=== PATIENT | female | born 1985 | race Caucasian/White ===

== ENCOUNTER 2018-12-27 13:00 | Emergency (ER) | payer BC, MEDICAID ==
[~2018-12-27] VITALS: Ht 157.5 cm; Wt 86.2 kg
--- NOTE | 2018-12-27 13:16 | NUR ---
PT A/OX4, PRESENTS TO THE ER FOR MEDICAL CLEARANCE PRIOR TO SELF-ADMITTING INTO A [facility]. PT REPORTS SHE CONSUMED APPROXIMATELY "10 PILLS OF XANAX" 1 HOUR AGO BEFORE SHE "CHECKED HERSELF IN". PT DENIES SI. VSS. NO ACUTE DISTRESS NOTED AT THIS TIME. PT DENIES PAIN, C/P, SOB, N/V/D, DIZZINESS, HEADACHE. ER MD AT BEDSIDE FOR MSE.
--- NOTE | 2018-12-27 13:26 | NUR ---
HEALTH AND SOCIAL CARE TEACHER AT BEDSIDE.
[2018-12-27 13:33] LABS: *BILIRUBIN,URIN NEGATIVE (NEGATIVE); *BLOOD, URINE NEGATIVE (NEGATIVE); *CLARITY,URINE CLEAR (CLEAR); *COLOR,URINE YELLOW (YELLOW); *KETONES,URINE NEGATIVE (NEGATIVE); *UROBILINOGEN,URINE 0.2 E.U./dl (NORMAL); LEUKOCYTE ESTERASE ,URINE TRACE (NEGATIVE); NITRITE, URINE NEGATIVE (NEGATIVE); UGLUCOSE NEGATIVE (NEGATIVE)
[2018-12-27 13:35] LABS: *URINE HCG, QUAL NEGATIVE (NEGATIVE)
[2018-12-27 13:36] LABS: *AMPHETAMINE, URINE NEGATIVE (NEGATIVE); *BARBITURATE, URINE NEGATIVE (NEGATIVE); *CANNABINOID, URINE NEGATIVE (NEGATIVE); *COCCAINE, URINE NEGATIVE (NEGATIVE); *OPIATE, URINE NEGATIVE (NEGATIVE); *PHENCYCLIDINE SCREEN,URINE NEGATIVE (NEGATIVE)
[2018-12-27 13:43] LABS: MUCUS,URINE FEW /LPF (0-FEW); SQUAMOUS EPITHELIAL CELL,UR FEW /HPF (NONE SEEN)
[2018-12-27] MEDS ORDERED: ALPR1TAB7 PO (13:43)
[2018-12-27] MEDS ORDERED: HYDR-4354 PO (13:43)
[2018-12-27] MEDS ORDERED: CHLO100T17 PO ×2 (13:43)
[2018-12-27] MEDS ORDERED: DIVA500T2 PO (13:43)
[2018-12-27] MEDS ORDERED: DULO60CA45 PO (13:43)
[2018-12-27] MEDS ORDERED: QUET200T PO (13:43)
[2018-12-27 13:44] LABS: BASOPHILS # (AUTO) 0.1 K/uL (0.0-8.0); BASOPHILS % (AUTO) 1.4 % (0.0-2.0); EOSINOPHILS # (AUTO) 0.1 K/uL (0.0-0.7); EOSINOPHILS % (AUTO) 2.7 % (0.0-7.0); HEMATOCRIT 38.7 % (31.2-41.9); HEMOGLOBIN 13.6 g/dL (10.9-14.3); LYMPHOCYTES # (AUTO) 1.3 K/uL (20.0-40.0); LYMPHOCYTES % (AUTO) 29.7 % (20.5-51.5); MEAN CORPUSCULAR HEMOGLOBIN 28.9 uug (24.7-32.8); MEAN CORPUSCULAR HGB CONC 35 g/dL (32.3-35.6); MEAN CORPUSCULAR VOLUME 82.2 fL (75.5-95.3); MONOCYTES # (AUTO) 0.6 K/uL (2.0-10.0); MONOCYTES % (AUTO) 14.2 % (0.0-11.0); NEUTROPHILS # (AUTO) 2.3 K/uL (1.8-8.9); PLATELET COUNT (AUTO) 280 K/uL (179-408); RED BLOOD CELL COUNT(AUTO) 4.71 MIL/uL (3.63-4.92); WHITE BLOOD COUNT (AUTO) 4.4 K/uL (3.8-11.8)
[2018-12-27 13:44] LABS: BACTERIA,URINE NONE SEEN /HPF (NONE SEEN); RBC,URINE 0-3 /HPF (0-3)
[2018-12-27 13:49] LABS: ETHANOL < 3 MG/DL (0-0)
[2018-12-27 13:50] LABS: ACETAMINOPHEN < 2.0 ug/mL (10-30); ALANINE AMINOTRANSFERASE 29 U/L (14-59); ALKALINE PHOSPHATASE 78 U/L (50-136); ASPARTATE AMINOTRANSFERASE 22 U/L (15-37); BILIRUBIN,DIRECT 0.2 mg/dL (0.0-0.2); BILIRUBIN,TOTAL 0.6 mg/dL (0.2-1.0); CARBON DIOXIDE 25 mmol/L (21-32); CHLORIDE 102 mmol/L (98-107); CREATININE 0.8 mg/dL (0.6-1.3); GLUCOSE 93 mg/dL (74-106); POTASSIUM 3.8 mmol/L (3.5-5.1); TOTAL PROTEIN, SERUM 8.4 g/dL (6.4-8.2); UREA NITROGEN, BLOOD 17 mg/dL (7-18); VALPROIC ACID 12 ug/mL (50-100)
--- NOTE | 2018-12-27 14:05 | NUR ---
Patient discharged to home in stable conditon. Written and verbal after care instructions given. Patient verbalizes understanding of instructions. DR Herman made patient aware of test results.
[2018-12-27 14:06] VITALS: BP 118/84
== END 2018-12-27 14:16 | disposition home or self-care (01) ==
LOC: ER 13:00
DX: F13.20 Sedative, hypnotic or anxiolytic dependence, uncomplicated (principal); F32.9 Major depressive disorder, single episode, unspecified; F43.10 Post-traumatic stress disorder, unspecified; Z88.5 Allergy status to narcotic agent; Z88.8 Allergy status to other drugs, medicaments and biological substances; Z88.0 Allergy status to penicillin; Z79.899 Other long term (current) drug therapy; Z79.890 Hormone replacement therapy; Z90.710 Acquired absence of both cervix and uterus; X58.XXXA Exposure to other specified factors, initial encounter; Y93.89 Activity, other specified; Y92.89 Other specified places as the place of occurrence of the external cause; Y99.8 Other external cause status
CPT/HCPCS: 36415; 80048; 80076; 80164; 80307; 81001; 84703; 85025; 99283; G0480 ×2; G0481; A4663

== ENCOUNTER 2019-01-02 15:02 | Emergency (ER) | payer BC, MEDICAID ==
[~2019-01-02] VITALS: Ht 157.5 cm; Wt 86.2 kg
[~2019-01-02 15:02] MED LIST: ALPR1TAB7 PO; CHLO100T17 PO; DIVA500T2 PO; DULO60CA45 PO; HYDR-4354 PO; QUET200T PO
--- NOTE | 2019-01-02 15:34 | NUR ---
PT A/OX4, PRESENTS TO THE ER W/ STAFF MEMBER FROM THE [facility], FOR MEDICAL CLEARANCE. STAFF MEMBER REPORTS THE PT MAY HAVE OVER SELF-MEDICATED. PT DOES NOT APPEAR TO BE IN ANY APPARENT DISTRESS AT THIS TIME. VSS.
--- NOTE | 2019-01-02 16:00 | NUR ---
AWA POON AT BEDSIDE FOR MSE.
[2019-01-02 16:23] LABS: EOSINOPHILS # (AUTO) 0.6 K/uL (0.0-0.7); EOSINOPHILS % (AUTO) 13.3 % (0.0-7.0); HEMATOCRIT 30.8 % (31.2-41.9); HEMOGLOBIN 10.6 g/dL (10.9-14.3); LYMPHOCYTES # (AUTO) 1.7 K/uL (20.0-40.0); LYMPHOCYTES % (AUTO) 39.3 % (20.5-51.5); MEAN CORPUSCULAR HEMOGLOBIN 28.4 uug (24.7-32.8); MEAN CORPUSCULAR HGB CONC 35 g/dL (32.3-35.6); MEAN CORPUSCULAR VOLUME 82.1 fL (75.5-95.3); MONOCYTES # (AUTO) 0.3 K/uL (2.0-10.0); MONOCYTES % (AUTO) 7.6 % (0.0-11.0); NEUTROPHILS # (AUTO) 1.7 K/uL (1.8-8.9); NEUTROPHILS % (AUTO) 38.8 % (38.5-71.5); PLATELET COUNT (AUTO) 261 K/uL (179-408); RED BLOOD CELL COUNT(AUTO) 3.75 MIL/uL (3.63-4.92); WHITE BLOOD COUNT (AUTO) 4.3 K/uL (3.8-11.8)
[2019-01-02 16:24] LABS: *BILIRUBIN,URIN NEGATIVE (NEGATIVE); *BLOOD, URINE NEGATIVE (NEGATIVE); *COLOR,URINE YELLOW (YELLOW); *KETONES,URINE TRACE (NEGATIVE); LEUKOCYTE ESTERASE ,URINE 1+ (NEGATIVE); NITRITE, URINE NEGATIVE (NEGATIVE); PH,URINE 7.5 (5.0-8.0); UGLUCOSE NEGATIVE (NEGATIVE)
[2019-01-02 16:25] LABS: *CLARITY,URINE SLIGHTLY CLOUDY (CLEAR)
[2019-01-02 16:32] LABS: *AMPHETAMINE, URINE NEGATIVE (NEGATIVE); *BARBITURATE, URINE NEGATIVE (NEGATIVE); *CANNABINOID, URINE NEGATIVE (NEGATIVE); *COCCAINE, URINE NEGATIVE (NEGATIVE); *OPIATE, URINE NEGATIVE (NEGATIVE); *PHENCYCLIDINE SCREEN,URINE NEGATIVE (NEGATIVE); BACTERIA,URINE FEW /HPF (NONE SEEN); RBC,URINE 0-3 /HPF (0-3); SQUAMOUS EPITHELIAL CELL,UR FEW /HPF (NONE SEEN)
[2019-01-02 16:33] LABS: CARBON DIOXIDE 29 mmol/L (21-32); CHLORIDE 105 mmol/L (98-107); CREATININE 0.7 mg/dL (0.6-1.3); ETHANOL < 3 MG/DL (0-0); POTASSIUM 4.1 mmol/L (3.5-5.1); UREA NITROGEN, BLOOD 15 mg/dL (7-18)
[2019-01-02 16:39] LABS: ALANINE AMINOTRANSFERASE 18 U/L (14-59); ALKALINE PHOSPHATASE 68 U/L (50-136); ASPARTATE AMINOTRANSFERASE 11 U/L (15-37); BILIRUBIN,DIRECT 0.1 mg/dL (0.0-0.2); BILIRUBIN,TOTAL 0.2 mg/dL (0.2-1.0); GLUCOSE 115 mg/dL (74-106); TOTAL PROTEIN, SERUM 6.7 g/dL (6.4-8.2)
[2019-01-02 16:41] LABS: ACETAMINOPHEN < 2.0 ug/mL (10-30)
[2019-01-02 16:47] LABS: THYROID STIMULATING HORMONE 0.133 mIU/mL (0.358-3.740)
--- NOTE | 2019-01-02 16:52 | NUR ---
DPatient discharged to home in stable conditon. Written and verbal after care instructions given. Patient verbalizes understanding of instructions. ALL BELONGINGS W/ PT. PT SELF-AMBUALTED W/O DIFFICULTY. PT D/C UNDER CARE OF [facility]OX CENTER STAFF MEMBER.
[2019-01-02 16:54] VITALS: BP 108/66
== END 2019-01-02 16:55 | disposition home or self-care (01) ==
LOC: ER 15:02
DX: F13.20 Sedative, hypnotic or anxiolytic dependence, uncomplicated (principal); F11.10 Opioid abuse, uncomplicated; Z90.710 Acquired absence of both cervix and uterus; Z88.7 Allergy status to serum and vaccine; Z88.5 Allergy status to narcotic agent; Z88.8 Allergy status to other drugs, medicaments and biological substances; Z79.891 Long term (current) use of opiate analgesic; Z79.899 Other long term (current) drug therapy
CPT/HCPCS: 36415; 70450; 80048; 80076; 80307; 81001; 82140; 84443; 84484; 84702; 85025; 85730; 87086; 99284; G0480 ×2; G0481; 70030-TC; A4663